=== PATIENT | female | born 1985 | race Caucasian/White ===

== ENCOUNTER 2018-08-20 01:28 | Observation (INO) ==
[2018-08-20] MEDS ORDERED: Ammonia Inhalant AMPUL IH ONE (01:36)
[2018-08-20] MEDS ORDERED: *HR* Dextrose 50 % in Water (Syg) 50 ML SYRINGE IVP ONE (01:38)
--- NOTE | 2018-08-20 01:41 | Emergency Department Note ---
Disposition Clinical Impression: Hypoglycemia Disposition: Still a Patient Condition: Fair Instructions: Diabetic Hypoglycemia (ED) Reasons to Return/Additional Instructions: Return to the emergency department if your symptoms persist or worsen. Return if you develop any new or concerning symptoms. Continue your home medications as prescribed. Please follow-up with your primary care physician. Please call their office first thing tomorrow morning to discuss this ED visit and schedule follow-up in the next 5-7 days or sooner if needed. Prescriptions: Glucagon,Human Recombinant [Glucagon Emergency Kit] 1 mg IJ ONCE PRN #1 vial PRN Reason: Hypoglycemia Referrals: Irasema Prince CNP [Primary Care Provider] - Forms: ED Satisfaction Letter Time of Disposition: 03:22 General Adult HPI - General Stated complaint: Low Blood sugar Time Seen by Provider: 08/20/18 01:34 Nursing Notes Reviewed: Yes Vital Signs Reviewed: Yes - History of Present Illness HPI Narrative: 33-year-old female known type I diabetic presents from home via EMS for evaluation of hyperglycemia. Per EMS, patient had hyperglycemic convulsions which awakened her . He tested her blood glucose which was in the 20s. He gave juice and called squad. On EMS arrival, blood glucose was in the low 40s. In route, she received 1 mg IM glucagon. Just prior to arrival, patient's blood glucose remained in the 40s. On arrival to this emergency department, patient's blood glucose 75. ROS: Limited secondary to patient's medical condition. - Related Data Home Medications Medication Instructions Recorded Confirmed Novolin R And Novolin N 07/20/15 Phenylephrine HCl/Acetaminophn 07/20/15 [Tylenol Sinus Congest-Pain Cpl] Previous Rx's Medication Instructions Recorded Azithromycin [Azithromycin 6-Tab 250 mg PO DAILY #6 tab 07/20/15 Pack] Dicyclomine [Bentyl] 20 mg PO QID PRN #20 capsule 03/07/16 Glucagon,Human Recombinant 1 mg IJ ONCE PRN #1 vial 08/20/18 [Glucagon Emergency Kit] Allergies Allergy/AdvReac Type Severity Reaction Status Date / Time No Known Allergies Allergy Verified 07/20/15 10:50 All systems ED: reviewed and negative except as stated. Review of Systems: As Per HPI Past Medical History - Past Medical History Medical history: Reports: diabetes Psychiatric history: Reports: no psych history DISEASE INTERVENTION SPECIALIST history: Reports: no DISEASE INTERVENTION SPECIALIST history - Social History Smoking Status: Never smoker Smokeless Tobacco Status: No Alcohol use: Reports: none Drug use: Reports: none Physical Exam Vital Signs Reviewed General: Patient response to sternal rub and painful stimuli. She does not spontaneously open her eyes however, when opening her eyelids to perform pupillary exam, she actively attempts to close her eyelids. Head: atraumatic, normocephalic Eye: normal appearance, PERRL, no scleral icterus, no conjunctival injection ENT: mucous membranes moist, normal external ear exam Neck: normal inspection, trachea midline, full ROM Chest: normal inspection, symmetric chest rise Respiratory: Good respiratory effort. Bilateral breath sounds are clear without wheezing, crackles, or rhonchi. Cardiovascular: Regular rate and rhythm. No clicks, rubs, gallops, or murmors. Normal heart sounds. Abdomen: Bowel sounds present normoactive. Abdomen is soft, nondistended, and nontender. No guarding or rebound. No organomegaly noted. Musculoskeletal: Spontaneously moving all extremities. Skin: warm, dry, intact. Neuro: No focal neurologic deficits observed. Psych: Patient's affect is appropriate for situation. Course Course Narrative: Blood glucose 75 on arrival. Patient is not spontaneously wake however, she responds to painful stimuli and actively tries to close her eyes during pupillary exam. IV established. One half amp D50 provided. Will monitor. Repeat blood glucoses in the 170s. After 1.5 hours the emergency department, patient was not spontaneously wake. Concern for potential confounding factors versus hypoglycemia. She would respond to noxious stimuli but would keep her eyes closed. Additional lab testing ordered. This involved procurement of a urine specimen. Straight catheter urine specimen was obtained for urinalysis as well as urine drug screen. Patient became responsive during this time and told staff to stop. Eyes were spontaneously opened. She would focus on certain individuals and track them in the room with her eyes. After sample was collected, she laid back down and closed her eyes. 04:15 Repeat blood glucose 160. Patient continued to desire to sleep. She had spontaneous purposeful movements but would not open her eyes. I had a one-way conversation with her informing her that her blood glucose and been corrected and her lab work was not concerning. I reminded her of her reaction during the urinary catheterization and told her that, when she woke up, she could go home. Her who is bedside during this one-sided conversation. Seconds later, patient appeared to wake up. She was able to hold a conversation. I asked the if he felt safe to go home and he said yes. As patient was discharged, stabbing was not able to get her out of bed to me: She would not sit upright of her own accord. does not believe she takes any sleeping supplements. Urine drug screen is unremarkable. UA not concerning for UTI. Will add CT head. CT head without contrast shows no acute process per radiology read. Will allow patient to continue sleeping in the emergency department. 18:55 Patient is now awake. Spontaneously opening her eyes and conversive. No slurring of speech. She appears to have some confusion as to who her is at bedside. She is unable to answer basic questions. Patient signed out to the day team, Dr. Leon and Dr. Ferguson. Pending: return of patient to baseline. Anticipated disposition: discharge home. Medical workup has not uncovered a cause of patient's behavior. Chest X-Ray 08/20/18 02:05 IMPRESSION: Normal chest x-ray D/ / Jan Corral MD / Jan Corral MD Interpreting Provider: Jan Corral MD Head CT 08/20/18 05:05 IMPRESSION: No acute intracranial abnormality. D/ / Jeff Tobin / Jeff Tobin Interpreting Provider: Jeff Tobin Vital Signs Temperature 97.4 F L 08/20/18 01:30 Pulse Rate 105 08/20/18 01:30 Respiratory Rate 20 08/20/18 01:30 Blood Pressure 124/72 08/20/18 01:30 O2 Sat by Pulse Oximetry 100 08/20/18 01:30 Temperature 97.4 F L 08/20/18 01:30 Pulse Rate 112 08/20/18 06:54 Respiratory Rate 16 08/20/18 06:54 Blood Pressure 113/69 08/20/18 06:54 O2 Sat by Pulse Oximetry 99 08/20/18 06:54 Oxygen Delivery Oxygen Delivery Room Air Medical Decision Making - Lab Data Result diagrams: 08/20/18 01:55 08/20/18 01:55 Lab Results 08/20/18 08/20/18 08/20/18 Range/Units 01:55 01:55 03:18 WBC 10.8 (4.3-11.1) K/mcL RBC 4.17 (3.82-4.97) M/mcL Hgb 12.2 (11.5-15.4) g/dL Hct 36.9 (35.3-44.9) % MCV 88.5 (83.0-100.0) fL MCH 29.3 (28.0-33.3) pg MCHC 33.1 (31.6-35.5) g/dL RDW 13.0 (11.5-14.5) % Plt Count 313 (140-400) K/mcL MPV 9.7 (9.4-12.4) fL Immature Gran % 0.5 (0-4) % Seg Neutrophils % 86.5 % Lymphocytes % 9.2 % Monocytes % 3.1 % Eosinophils % 0.2 % Basophils % 0.5 % Neutrophils # 9.3 H (1.6-8.9) K/mcL Lymphocytes # 1.0 (0.6-4.6) K/mcL Monocytes # 0.3 (0.0-1.3) K/mcL Eosinophils # 0.0 (0.0-0.6) K/mcL Basophils # 0.1 (0.0-0.2) K/mcL Sodium 135 L (136-145) mEq/L Potassium 4.0 (3.5-5.1) mEq/L Chloride 106 (98-107) mEq/L Carbon Dioxide 23 (23-29) mEq/L BUN 19 (6-20) mg/dL Creatinine 0.65 (0.60-1.20) mg/dL Est GFR ( Amer) > 60 (> 60) Est GFR (Non-Af Amer) > 60 (> 60) BUN/Creatinine Ratio 29 H (6-26) Glucose 140 H (70-105) mg/dL POC Glucose (70-99) mg/dL Calculated Osmolality 285 (280-300) Calcium 8.7 (8.6-10.3) mg/dL Magnesium 1.9 (1.6-2.6) mg/dL Urine Color Yellow (Yellow) Urine Clarity Cloudy A (Clear) Urine pH 5.0 (5.0-8.0) pH Units Ur Specific [place] 1.026 H (1.010-1.025) Urine Protein Negative (Neg-Trace) mg/dL Urine Glucose (UA) 500 H (Normal) mg/dL Urine Ketones Trace H (Negative) mg/dL Urine Blood Negative (Negative) Urine Nitrite Negative (Negative) Urine Bilirubin Negative (Negative) Urine Urobilinogen Normal (Normal) mg/dL Ur Leukocyte Esterase Negative (Negative) Urine Microscopic RBC 0-3 (0-3) per hpf Urine Microscopic WBC 0-3 (0-3) per hpf Ur Squamous Epith Cells Many H (None-Few) per lpf Urine Bacteria None Seen (None-Few) per hpf Hyaline Casts Few (None-Few) per lpf Ur Culture Indicated? NO (NO) Urine Opiates Screen (Iwwjlx=727) ng/mL Ur Barbiturates Screen (Olfyxe=540) ng/mL Ur Phencyclidine Scrn (Cutoff=25) ng/mL Ur Amphetamines Screen (Fqbmnn=7117) ng/mL U Benzodiazepines Scrn (Ipwnay=082) ng/mL Urine Cocaine Screen (Cutoff= 300) ng/mL U Marijuana (THC) Screen (Cutoff = 50) ng/mL Ur Drug Screen Interp 08/20/18 08/20/18 Range/Units 03:18 04:13 WBC (4.3-11.1) K/mcL RBC (3.82-4.97) M/mcL Hgb (11.5-15.4) g/dL Hct (35.3-44.9) % MCV (83.0-100.0) fL MCH (28.0-33.3) pg MCHC (31.6-35.5) g/dL RDW (11.5-14.5) % Plt Count (140-400) K/mcL MPV (9.4-12.4) fL Immature Gran % (0-4) % Seg Neutrophils % % Lymphocytes % % Monocytes % % Eosinophils % % Basophils % % Neutrophils # (1.6-8.9) K/mcL Lymphocytes # (0.6-4.6) K/mcL Monocytes # (0.0-1.3) K/mcL Eosinophils # (0.0-0.6) K/mcL Basophils # (0.0-0.2) K/mcL Sodium (136-145) mEq/L Potassium (3.5-5.1) mEq/L Chloride (98-107) mEq/L Carbon Dioxide (23-29) mEq/L BUN (6-20) mg/dL Creatinine (0.60-1.20) mg/dL Est GFR ( Amer) (> 60) Est GFR (Non-Af Amer) (> 60) BUN/Creatinine Ratio (6-26) Glucose (70-105) mg/dL POC Glucose 160 H (70-99) mg/dL Calculated Osmolality (280-300) Calcium (8.6-10.3) mg/dL Magnesium (1.6-2.6) mg/dL Urine Color (Yellow) Urine Clarity (Clear) Urine pH (5.0-8.0) pH Units Ur Specific [place] (1.010-1.025) Urine Protein (Neg-Trace) mg/dL Urine Glucose (UA) (Normal) mg/dL Urine Ketones (Negative) mg/dL Urine Blood (Negative) Urine Nitrite (Negative) Urine Bilirubin (Negative) Urine Urobilinogen (Normal) mg/dL Ur Leukocyte Esterase (Negative) Urine Microscopic RBC (0-3) per hpf Urine Microscopic WBC (0-3) per hpf Ur Squamous Epith Cells (None-Few) per lpf Urine Bacteria (None-Few) per hpf Hyaline Casts (None-Few) per lpf Ur Culture Indicated? (NO) Urine Opiates Screen Negative (Ufyktt=375) ng/mL Ur Barbiturates Screen Negative (Xqcjbv=493) ng/mL Ur Phencyclidine Scrn Negative (Cutoff=25) ng/mL Ur Amphetamines Screen Negative (Wdzsew=7529) ng/mL U Benzodiazepines Scrn Negative (Bjgnye=713) ng/mL Urine Cocaine Screen Negative (Cutoff= 300) ng/mL U Marijuana (THC) Screen Negative (Cutoff = 50) ng/mL Ur Drug Screen Interp See Below
[2018-08-20 02:12] LABS: Basophils # 0.1 K/mcL (0.0-0.2); Basophils % 0.5 %; Eosinophils % 0.2 %; Hematocrit 36.9 % (35.3-44.9); Hemoglobin 12.2 g/dL (11.5-15.4); Immature Granulocytes % 0.5 % (0-4); Lymphocytes % 9.2 %; Mean Corpuscular HGB Conc 33.1 g/dL (31.6-35.5); Mean Corpuscular Hemoglobin 29.3 pg (28.0-33.3); Mean Corpuscular Volume 88.5 fL (83.0-100.0); Mean Platelet Volume 9.7 fL (9.4-12.4); Monocytes # 0.3 K/mcL (0.0-1.3); Monocytes % 3.1 %; Neutrophils # 9.3 K/mcL (1.6-8.9); Platelet Count 313 K/mcL (140-400); Red Blood Count 4.17 M/mcL (3.82-4.97); Segmented Neutrophils % 86.5 %
[2018-08-20 02:23] LABS: BUN/Creatinine Ratio 29 (6-26); Blood Urea Nitrogen 19 mg/dL (6-20); Calcium 8.7 mg/dL (8.6-10.3); Carbon Dioxide 23 mEq/L (23-29); Chloride 106 mEq/L (98-107); Glucose 140 mg/dL (70-105); Magnesium 1.9 mg/dL (1.6-2.6); Osmolality,Calculated 285 (280-300); Sodium 135 mEq/L (136-145); eGFR For Non-African Americans > 60 (> 60)
[2018-08-20 03:37] LABS: Bilirubin,Urine Negative (Negative); Blood,Urine Negative (Negative); Clarity,Urine Cloudy (Clear); Color,Urine Yellow (Yellow); Glucose,Urine (UA) 500 mg/dL (Normal); Ketones,Urine Trace mg/dL (Negative); Leukocyte Esterase,Urine Negative (Negative); Nitrite,Urine Negative (Negative); Protein,Urine Negative (Neg-Trace); Specific Gravity,Urine 1.026 (1.010-1.025); Urobilinogen,Urine Normal (Normal)
[2018-08-20 03:38] LABS: Bacteria,Urine None Seen per hpf (None-Few); Hyaline Casts,Urine Few per lpf (None-Few); RBC,Urine 0-3 per hpf (0-3); Squamous Epithelial Cell,Urine Many per lpf (None-Few); WBC,Urine 0-3 per hpf (0-3)
[2018-08-20 03:46] LABS: Amphetamine Screen,Urine Negative ng/mL (Cutoff=1000); Barbiturate Screen,Urine Negative ng/mL (Cutoff=200); Benzodiazepines Screen,Urine Negative ng/mL (Cutoff=200); Cannabinoid Screen,Urine Negative ng/mL (Cutoff = 50); Cocaine Screen,Urine Negative ng/mL (Cutoff= 300); Opiate Screen,Urine Negative ng/mL (Cutoff=300); Phencyclidine Screen,Urine Negative ng/mL (Cutoff=25)
--- NOTE | 2018-08-20 03:56 | Emergency Department Note ---
Disposition Clinical Impression: Hypoglycemia Disposition: Still a Patient Condition: Fair Instructions: Diabetic Hypoglycemia (ED) Reasons to Return/Additional Instructions: Return to the emergency department if your symptoms persist or worsen. Return if you develop any new or concerning symptoms. Continue your home medications as prescribed. Please follow-up with your primary care physician. Please call their office first thing tomorrow morning to discuss this ED visit and schedule follow-up in the next 5-7 days or sooner if needed. Prescriptions: Glucagon,Human Recombinant [Glucagon Emergency Kit] 1 mg IJ ONCE PRN #1 vial PRN Reason: Hypoglycemia Referrals: Irasema Prince CNP [Primary Care Provider] - Forms: ED Satisfaction Letter General Adult HPI - General Chief complaint: ED General Medical Stated complaint: Low Blood sugar Time Seen by Provider: 08/20/18 01:34 Source: EMS Nursing Notes Reviewed: Yes Vital Signs Reviewed: Yes - History of Present Illness Pain Scale: 0 - Related Data Home Medications Medication Instructions Recorded Confirmed Novolin R And Novolin N 07/20/15 Phenylephrine HCl/Acetaminophn 07/20/15 [Tylenol Sinus Congest-Pain Cpl] Previous Rx's Medication Instructions Recorded Azithromycin [Azithromycin 6-Tab 250 mg PO DAILY #6 tab 07/20/15 Pack] Dicyclomine [Bentyl] 20 mg PO QID PRN #20 capsule 03/07/16 Glucagon,Human Recombinant 1 mg IJ ONCE PRN #1 vial 08/20/18 [Glucagon Emergency Kit] Allergies Allergy/AdvReac Type Severity Reaction Status Date / Time No Known Allergies Allergy Verified 07/20/15 10:50 Past Medical History - Past Medical History Medical history: Reports: diabetes Psychiatric history: Reports: no psych history MANAGER IN HOME history: Reports: no MANAGER IN HOME history - Social History Smoking Status: Never smoker Smokeless Tobacco Status: No Alcohol use: Reports: none Drug use: Reports: none Physical Exam - General General appearance: lethargic Course Vital Signs Temperature 97.4 F L 08/20/18 01:30 Pulse Rate 105 08/20/18 01:30 Respiratory Rate 20 08/20/18 01:30 Blood Pressure 124/72 08/20/18 01:30 O2 Sat by Pulse Oximetry 100 08/20/18 01:30 Temperature 97.4 F L 08/20/18 01:30 Pulse Rate 112 08/20/18 06:54 Respiratory Rate 16 08/20/18 06:54 Blood Pressure 113/69 08/20/18 06:54 O2 Sat by Pulse Oximetry 99 08/20/18 06:54 Oxygen Delivery Oxygen Delivery Room Air Medical Decision Making - Medical Records Medical records reviewed: Yes I reviewed the patient's medical records. - Lab Data Lab results reviewed: Yes I reviewed the patient's lab results. Result diagrams: 08/20/18 01:55 08/20/18 01:55 Lab Results 08/20/18 08/20/18 08/20/18 Range/Units 01:55 01:55 03:18 WBC 10.8 (4.3-11.1) K/mcL RBC 4.17 (3.82-4.97) M/mcL Hgb 12.2 (11.5-15.4) g/dL Hct 36.9 (35.3-44.9) % MCV 88.5 (83.0-100.0) fL MCH 29.3 (28.0-33.3) pg MCHC 33.1 (31.6-35.5) g/dL RDW 13.0 (11.5-14.5) % Plt Count 313 (140-400) K/mcL MPV 9.7 (9.4-12.4) fL Immature Gran % 0.5 (0-4) % Seg Neutrophils % 86.5 % Lymphocytes % 9.2 % Monocytes % 3.1 % Eosinophils % 0.2 % Basophils % 0.5 % Neutrophils # 9.3 H (1.6-8.9) K/mcL Lymphocytes # 1.0 (0.6-4.6) K/mcL Monocytes # 0.3 (0.0-1.3) K/mcL Eosinophils # 0.0 (0.0-0.6) K/mcL Basophils # 0.1 (0.0-0.2) K/mcL Sodium 135 L (136-145) mEq/L Potassium 4.0 (3.5-5.1) mEq/L Chloride 106 (98-107) mEq/L Carbon Dioxide 23 (23-29) mEq/L BUN 19 (6-20) mg/dL Creatinine 0.65 (0.60-1.20) mg/dL Est GFR ( Amer) > 60 (> 60) Est GFR (Non-Af Amer) > 60 (> 60) BUN/Creatinine Ratio 29 H (6-26) Glucose 140 H (70-105) mg/dL POC Glucose (70-99) mg/dL Calculated Osmolality 285 (280-300) Calcium 8.7 (8.6-10.3) mg/dL Magnesium 1.9 (1.6-2.6) mg/dL Urine Color Yellow (Yellow) Urine Clarity Cloudy A (Clear) Urine pH 5.0 (5.0-8.0) pH Units Ur Specific [place] 1.026 H (1.010-1.025) Urine Protein Negative (Neg-Trace) mg/dL Urine Glucose (UA) 500 H (Normal) mg/dL Urine Ketones Trace H (Negative) mg/dL Urine Blood Negative (Negative) Urine Nitrite Negative (Negative) Urine Bilirubin Negative (Negative) Urine Urobilinogen Normal (Normal) mg/dL Ur Leukocyte Esterase Negative (Negative) Urine Microscopic RBC 0-3 (0-3) per hpf Urine Microscopic WBC 0-3 (0-3) per hpf Ur Squamous Epith Cells Many H (None-Few) per lpf Urine Bacteria None Seen (None-Few) per hpf Hyaline Casts Few (None-Few) per lpf Ur Culture Indicated? NO (NO) Urine Opiates Screen (Ziqyxc=512) ng/mL Ur Barbiturates Screen (Ksevfq=734) ng/mL Ur Phencyclidine Scrn (Cutoff=25) ng/mL Ur Amphetamines Screen (Zsxwsh=0676) ng/mL U Benzodiazepines Scrn (Nlgkao=090) ng/mL Urine Cocaine Screen (Cutoff= 300) ng/mL U Marijuana (THC) Screen (Cutoff = 50) ng/mL Ur Drug Screen Interp 08/20/18 08/20/18 Range/Units 03:18 04:13 WBC (4.3-11.1) K/mcL RBC (3.82-4.97) M/mcL Hgb (11.5-15.4) g/dL Hct (35.3-44.9) % MCV (83.0-100.0) fL MCH (28.0-33.3) pg MCHC (31.6-35.5) g/dL RDW (11.5-14.5) % Plt Count (140-400) K/mcL MPV (9.4-12.4) fL Immature Gran % (0-4) % Seg Neutrophils % % Lymphocytes % % Monocytes % % Eosinophils % % Basophils % % Neutrophils # (1.6-8.9) K/mcL Lymphocytes # (0.6-4.6) K/mcL Monocytes # (0.0-1.3) K/mcL Eosinophils # (0.0-0.6) K/mcL Basophils # (0.0-0.2) K/mcL Sodium (136-145) mEq/L Potassium (3.5-5.1) mEq/L Chloride (98-107) mEq/L Carbon Dioxide (23-29) mEq/L BUN (6-20) mg/dL Creatinine (0.60-1.20) mg/dL Est GFR ( Amer) (> 60) Est GFR (Non-Af Amer) (> 60) BUN/Creatinine Ratio (6-26) Glucose (70-105) mg/dL POC Glucose 160 H (70-99) mg/dL Calculated Osmolality (280-300) Calcium (8.6-10.3) mg/dL Magnesium (1.6-2.6) mg/dL Urine Color (Yellow) Urine Clarity (Clear) Urine pH (5.0-8.0) pH Units Ur Specific [place] (1.010-1.025) Urine Protein (Neg-Trace) mg/dL Urine Glucose (UA) (Normal) mg/dL Urine Ketones (Negative) mg/dL Urine Blood (Negative) Urine Nitrite (Negative) Urine Bilirubin (Negative) Urine Urobilinogen (Normal) mg/dL Ur Leukocyte Esterase (Negative) Urine Microscopic RBC (0-3) per hpf Urine Microscopic WBC (0-3) per hpf Ur Squamous Epith Cells (None-Few) per lpf Urine Bacteria (None-Few) per hpf Hyaline Casts (None-Few) per lpf Ur Culture Indicated? (NO) Urine Opiates Screen Negative (Rbgjby=585) ng/mL Ur Barbiturates Screen Negative (Fnpcjh=794) ng/mL Ur Phencyclidine Scrn Negative (Cutoff=25) ng/mL Ur Amphetamines Screen Negative (Jncbhd=8360) ng/mL U Benzodiazepines Scrn Negative (Gtdiju=629) ng/mL Urine Cocaine Screen Negative (Cutoff= 300) ng/mL U Marijuana (THC) Screen Negative (Cutoff = 50) ng/mL Ur Drug Screen Interp See Below - Radiology Data Radiology results reviewed: Yes I reviewed the patient's radiology results. Chest X-Ray 08/20/18 02:05 IMPRESSION: Normal chest x-ray D/ / Jan Corral MD / Jan Corral MD Interpreting Provider: Jan Corral MD Chest X-Ray 08/20/18 02:05 IMPRESSION: Normal chest x-ray D/ / Jan Corral MD / Jan Corral MD Interpreting Provider: Jan Corral MD Head CT 08/20/18 05:05 IMPRESSION: No acute intracranial abnormality. D/ / Jeff Tobin / Jeff Tobin Interpreting Provider: Jeff Tobin Critical Care Time Critical Care Time: Yes Total Critical Care Time: 45 Attestation: Critical care performed: Time is exclusive of separately billable procedures. Time includes: direct patient care, patient reassessment, coordination of patient care, interpretation of data (laboratory data, radiology data, and respiratory data), review of patient's medical records, medical consultation and documentation of patient care. Procedures included in critical care time: Procedures excluded from critical care time: Attestation Statement - Attestation Attestation: I, Calvin Pemberton MD, personally evaluated this patient and discussed their management with the resident physician. I reviewed the resident's note and agree with the documented findings, medical decision making, and plan of care. 33-year-old female who is insulin-dependent diabetic presents to the emergency department by EMS for hypoglycemia. reports that she awoke him from sleep in the bed having seizure-like activity. He checked her sugar and it was 20. He tried giving her some juice. He called EMS. EMS scattered fingerstick of 40. They gave her glucagon 1 mg IM. On arrival here the patient's fingerstick blood sugar was 75 however she is still unresponsive. Like activity here. She does have appropriate response to pain or physical stimuli. No response to verbal stimuli. On examination patient is a well-developed well-nourished female in no acute distress. There is no cyanosis or diaphoresis. Patient responds to physical stimuli. No signs of trauma. Mucous membranes are moist. Neck is supple. Breath sounds are clear and equal bilaterally. Heart regular rate and rhythm. Abdomen soft with normal bowel sounds. Moves all 4 extremities spontaneously. Labs reviewed. Chest x-ray negative. Head CT negative. Patient received one half amp of D50. Repeat fingerstick blood sugar was 173. She remained unresponsive. After period of observation a straight catheter was performed to obtain urine for urinalysis and urine tox screen. Patient woke up fully during the straight catheter but then immediately went back to sleep and rolled on her side. We will continue to observe patient until she is more awake alert and then she may be discharged home. At 0 6:30 patient is much more arousable. She is more alert and speaking clearly however she is still very confused and does not recognize people. She does not recognize her and still making some inappropriate responses to questions. Her condition has however progressively improved over the last several hours and I feel she needs a few more hours of observation. She is being signed out to the oncoming dayshift team, Dr. Ferguson and Dr. Leon. If patient does not get back to her baseline mental status over the next few hours she may need to be admitted for altered mental status.
--- NOTE | 2018-08-20 07:25 | Emergency Department Note ---
Disposition Clinical Impression: Hypoglycemia Altered mental status Qualifiers: Altered mental status type: unspecified Qualified Code(s): R41.82 - Altered mental status, unspecified Disposition: Admitted As Inpatient Condition: Fair General Adult HPI - General Chief complaint: ED General Medical Stated complaint: Low Blood sugar Time Seen by Provider: 08/20/18 01:34 Source: EMS - History of Present Illness Pain Scale: 0 - Related Data Home Medications Medication Instructions Recorded Confirmed Novolin R And Novolin N 07/20/15 Phenylephrine HCl/Acetaminophn 07/20/15 [Tylenol Sinus Congest-Pain Cpl] Previous Rx's Medication Instructions Recorded Azithromycin [Azithromycin 6-Tab 250 mg PO DAILY #6 tab 07/20/15 Pack] Dicyclomine [Bentyl] 20 mg PO QID PRN #20 capsule 03/07/16 Glucagon,Human Recombinant 1 mg IJ ONCE PRN #1 vial 08/20/18 [Glucagon Emergency Kit] Allergies Allergy/AdvReac Type Severity Reaction Status Date / Time No Known Allergies Allergy Verified 07/20/15 10:50 Past Medical History - Past Medical History Medical history: Reports: diabetes Psychiatric history: Reports: no psych history MEDICAL PHYSIOLOGIST history: Reports: no MEDICAL PHYSIOLOGIST history - Social History Smoking Status: Never smoker Smokeless Tobacco Status: No Alcohol use: Reports: none Drug use: Reports: none Physical Exam - General General appearance: lethargic Course Course Narrative: [place] of care at 07:18 from assistant offset press operator team. Please see prior documentation for full details. In brief, IDDM who woke up with convulsions this morning. Checked glucose which was 20. Drank juice, was 40 when EMS arrived. Received glucagon IM 1mg. Glucose was 75 upon arrival receiving 1/2 amp D50. Patient had remained somnolent initially here prompting CT imaging head which was negative. Awaiting patient return to baseline. Vital Signs Temperature 97.4 F L 08/20/18 01:30 Pulse Rate 105 08/20/18 01:30 Respiratory Rate 20 08/20/18 01:30 Blood Pressure 124/72 08/20/18 01:30 O2 Sat by Pulse Oximetry 100 08/20/18 01:30 Temperature 97.4 F L 08/20/18 01:30 Pulse Rate 108 08/20/18 09:02 Respiratory Rate 18 08/20/18 08:07 Blood Pressure 119/65 08/20/18 09:02 O2 Sat by Pulse Oximetry 99 08/20/18 09:02 Oxygen Delivery Oxygen Delivery Room Air Medical Decision Making - MDM Narrative Medical decision making narrative: 33-year-old female presenting due to hypoglycemia and altered mental status. She has been corrected easily with supplemental dextrose as well as glucagon. No recurrent issues of seizure-like activity or hypoglycemia. She has remained symptomatic and currently not at baseline. She is having visual complaints as well as confusion. She was observed here for over 7 hours without return to baseline. Patient admitted to the hospitalist service for altered mental status, hypoglycemia. - Lab Data Lab results reviewed: Yes I reviewed the patient's lab results. Result diagrams: 08/20/18 01:55 08/20/18 01:55 Lab Results 08/20/18 08/20/18 08/20/18 Range/Units 01:55 01:55 03:18 WBC 10.8 (4.3-11.1) K/mcL RBC 4.17 (3.82-4.97) M/mcL Hgb 12.2 (11.5-15.4) g/dL Hct 36.9 (35.3-44.9) % MCV 88.5 (83.0-100.0) fL MCH 29.3 (28.0-33.3) pg MCHC 33.1 (31.6-35.5) g/dL RDW 13.0 (11.5-14.5) % Plt Count 313 (140-400) K/mcL MPV 9.7 (9.4-12.4) fL Immature Gran % 0.5 (0-4) % Seg Neutrophils % 86.5 % Lymphocytes % 9.2 % Monocytes % 3.1 % Eosinophils % 0.2 % Basophils % 0.5 % Neutrophils # 9.3 H (1.6-8.9) K/mcL Lymphocytes # 1.0 (0.6-4.6) K/mcL Monocytes # 0.3 (0.0-1.3) K/mcL Eosinophils # 0.0 (0.0-0.6) K/mcL Basophils # 0.1 (0.0-0.2) K/mcL Sodium 135 L (136-145) mEq/L Potassium 4.0 (3.5-5.1) mEq/L Chloride 106 (98-107) mEq/L Carbon Dioxide 23 (23-29) mEq/L BUN 19 (6-20) mg/dL Creatinine 0.65 (0.60-1.20) mg/dL Est GFR ( Amer) > 60 (> 60) Est GFR (Non-Af Amer) > 60 (> 60) BUN/Creatinine Ratio 29 H (6-26) Glucose 140 H (70-105) mg/dL POC Glucose (70-99) mg/dL Calculated Osmolality 285 (280-300) Calcium 8.7 (8.6-10.3) mg/dL Magnesium 1.9 (1.6-2.6) mg/dL Urine Color Yellow (Yellow) Urine Clarity Cloudy A (Clear) Urine pH 5.0 (5.0-8.0) pH Units Ur Specific [place] 1.026 H (1.010-1.025) Urine Protein Negative (Neg-Trace) mg/dL Urine Glucose (UA) 500 H (Normal) mg/dL Urine Ketones Trace H (Negative) mg/dL Urine Blood Negative (Negative) Urine Nitrite Negative (Negative) Urine Bilirubin Negative (Negative) Urine Urobilinogen Normal (Normal) mg/dL Ur Leukocyte Esterase Negative (Negative) Urine Microscopic RBC 0-3 (0-3) per hpf Urine Microscopic WBC 0-3 (0-3) per hpf Ur Squamous Epith Cells Many H (None-Few) per lpf Urine Bacteria None Seen (None-Few) per hpf Hyaline Casts Few (None-Few) per lpf Ur Culture Indicated? NO (NO) Urine Opiates Screen (Ldohne=008) ng/mL Ur Barbiturates Screen (Coyaoj=126) ng/mL Ur Phencyclidine Scrn (Cutoff=25) ng/mL Ur Amphetamines Screen (Yykkqj=0307) ng/mL U Benzodiazepines Scrn (Npapbo=602) ng/mL Urine Cocaine Screen (Cutoff= 300) ng/mL U Marijuana (THC) Screen (Cutoff = 50) ng/mL Ur Drug Screen Interp 08/20/18 08/20/18 Range/Units 03:18 04:13 WBC (4.3-11.1) K/mcL RBC (3.82-4.97) M/mcL Hgb (11.5-15.4) g/dL Hct (35.3-44.9) % MCV (83.0-100.0) fL MCH (28.0-33.3) pg MCHC (31.6-35.5) g/dL RDW (11.5-14.5) % Plt Count (140-400) K/mcL MPV (9.4-12.4) fL Immature Gran % (0-4) % Seg Neutrophils % % Lymphocytes % % Monocytes % % Eosinophils % % Basophils % % Neutrophils # (1.6-8.9) K/mcL Lymphocytes # (0.6-4.6) K/mcL Monocytes # (0.0-1.3) K/mcL Eosinophils # (0.0-0.6) K/mcL Basophils # (0.0-0.2) K/mcL Sodium (136-145) mEq/L Potassium (3.5-5.1) mEq/L Chloride (98-107) mEq/L Carbon Dioxide (23-29) mEq/L BUN (6-20) mg/dL Creatinine (0.60-1.20) mg/dL Est GFR ( Amer) (> 60) Est GFR (Non-Af Amer) (> 60) BUN/Creatinine Ratio (6-26) Glucose (70-105) mg/dL POC Glucose 160 H (70-99) mg/dL Calculated Osmolality (280-300) Calcium (8.6-10.3) mg/dL Magnesium (1.6-2.6) mg/dL Urine Color (Yellow) Urine Clarity (Clear) Urine pH (5.0-8.0) pH Units Ur Specific [place] (1.010-1.025) Urine Protein (Neg-Trace) mg/dL Urine Glucose (UA) (Normal) mg/dL Urine Ketones (Negative) mg/dL Urine Blood (Negative) Urine Nitrite (Negative) Urine Bilirubin (Negative) Urine Urobilinogen (Normal) mg/dL Ur Leukocyte Esterase (Negative) Urine Microscopic RBC (0-3) per hpf Urine Microscopic WBC (0-3) per hpf Ur Squamous Epith Cells (None-Few) per lpf Urine Bacteria (None-Few) per hpf Hyaline Casts (None-Few) per lpf Ur Culture Indicated? (NO) Urine Opiates Screen Negative (Iflbph=834) ng/mL Ur Barbiturates Screen Negative (Cueuvk=849) ng/mL Ur Phencyclidine Scrn Negative (Cutoff=25) ng/mL Ur Amphetamines Screen Negative (Qsbvyv=9258) ng/mL U Benzodiazepines Scrn Negative (Pyjvit=460) ng/mL Urine Cocaine Screen Negative (Cutoff= 300) ng/mL U Marijuana (THC) Screen Negative (Cutoff = 50) ng/mL Ur Drug Screen Interp See Below - Radiology Data Radiology results reviewed: Yes I reviewed the patient's radiology results. Chest X-Ray 08/20/18 02:05 IMPRESSION: Normal chest x-ray D/ / Jan Corral MD / Jan Corral MD Interpreting Provider: Jan Corral MD Head CT 08/20/18 05:05 IMPRESSION: No acute intracranial abnormality. D/ / Jeff Tobin / Jeff Tobin Interpreting Provider: Jeff Tobin S.B.APatty - S.B.ALaniRLani Situation: Demographics, MOA Background: Presenting Complaint, Relevant PMH, Meds, & Allergies Assessment: Course and respsone to treatment, Exam Concerns, Patient/Family Expectation, Pertinant Lab Results Recommendation: Barrier(s) to disposition, Recommendation based on pending studies, treatments, or consults S.B.A.RLani Report Given to: Dr. Zaira Esquivel Repor Time: 09:09 Attestation Statement - Attestation Attestation: Resident Attestation: I examined this patient and my medical decision making was reviewed with the Resident Physician. I agree with the documented findings, disposition and treatment plan as described except to the extent set forth below. We independently had [id number] contact with the patient. Patient taken over at sign out from Dr. Pemberton. Patient with initial hypoglycemia. Patient was treated appropriately and continue to monitor. Patient did not improve as expected. Patient's workup was brought in. At the time of evaluating her she continues to be confused. She does appear to have some short-term memory loss. Initial workup was negative. Due to her not returning to baseline and a total time of over 6 hours in the emergency department we will continue her observation in the hospital. We have discussed this with the hospitalist the patient has been accepted for admission. Overall the patient has been unable to further explain any of her symptoms. She states she feels not right but is unable to further delineate this in any way. Denies fever, chills, nausea, vomiting, chest pain, shortness of breath, abdominal pain, dysuria, vaginal discharge, rashes, or swelling in the legs.
[2018-08-20] MEDS ORDERED: 0.9 % Sodium Chloride 1,000 ML IVC ONE (08:30)
[2018-08-20] MEDS ORDERED: Ondansetron 4 MG/2 ML VIAL IVP ONE (09:10)
[2018-08-20] MEDS ORDERED: Naloxone 0.4 MG/ML INJ IVP PRN (09:18)
[2018-08-20] MEDS ORDERED: *HR* Dextrose 50 % in Water (Syg) 50 ML SYRINGE IVP PRN (09:19)
[2018-08-20] MEDS ORDERED: Dextrose Gel 15 GM/37.5 ML TUBE PO PRN ×2 (09:19)
[2018-08-20] MEDS ORDERED: D5% in Water 1,000 ML IVC PRN (09:19)
[2018-08-20] MEDS ORDERED: Dextrose 4 GM Chewable Tablets PO PRN ×2 (09:19)
--- NOTE | 2018-08-20 09:26 | Internal Med History&Physical ---
Date of Encounter: 08/20/18 Time of Encounter: 09:00 Internal Medicine - H&P: HPI Chief complaint: seizure, AMS Admitted From: Home History of present illness: Ms. Ladd is a 33 year old female with history of type 1 diabetes presented to the ED with an episode of seizure. History is limited due to patient's ongoing encephalopathy hence further information was obtained on chart review, discussion with the ED physician, and patient's at bedside. Patient's was woken up by his last night when he noted she had seizure like activities. Tonic-clonic movements in both UE and LEs. Lasted about a minute, followed by post-ictal confusion for about 25 mins. He checked her glucose which was noted nydia 20. He somehow administered small amount of orange juice which raised her blood glucose to 40 then was brought to the ED for further evaluation prior to the episode, she did not have any focal complaints include chest pain, shortness of breath, palpitation, cough, sputum production, nausea/vomiting, abdominal pain, change in bowel habits, dysuria, or recent illnesses or sick contacts. is not sure whether she had administer extra doses of insulin recently. She and is currently alert but not able to give any meaningful history as she keeps repeating "something is not right". In the ED, she was afebrile and hemodynamically stable. No further seizure-like activities were noted during her stay. Workup was largely unremarkable with blood glucose at 140 -> 385. Urinalysis was negative for leukocyte esterase or nitrite. Chest x-ray did not show any acute cardiopulmonary process and CT was negative for i ntracranial bleed. After monitoring the patient in the ED for 8 hours, patient still was not at her baseline mental status and the decision was made to admit the patient for further management. Past Med Surg Social Fam HX - Past Medical History Medical history: diabetes Psychiatric history: no psych history - Past Surgical History Surgical History: no surgical history - Social History Smoking Status: Never smoker Smokeless Tobacco Status: No Alcohol use: none Drug use: none - Additional Family History Additional family history: unable to obtain due to mental status Internal Medicine - H&P: Meds Azithromycin [Azithromycin 6-Tab Pack] 250 mg PO DAILY #6 tab 07/20/15 [Rx] Novolin R And Novolin N 07/20/15 [History] Phenylephrine HCl/Acetaminophn [Tylenol Sinus Congest-Pain Cpl] 07/20/15 [History] Dicyclomine [Bentyl] 20 mg PO QID PRN #20 capsule 03/07/16 [Rx] Glucagon,Human Recombinant [Glucagon Emergency Kit] 1 mg IJ ONCE PRN #1 vial 08/20/18 [Rx] Allergy/AdvReac Type Severity Reaction Status Date / Time No Known Allergies Allergy Verified 07/20/15 10:50 All Systems PM: A 10-system review of systems was performed and is negative for pertinent findings except as documented above in the HPI. - Constitutional Vitals: Temp Pulse Resp BP Pulse Ox 97.4 F L 108 18 119/65 99 08/20/18 01:30 08/20/18 09:02 08/20/18 08:07 08/20/18 09:02 08/20/18 09:02 Exam: General: Alert and oriented to self, unable to tell me what year/month it is or where we are. Able to recognize her however. Appears to be anxious but comfortable HEENT: pupils equal, round and reactive. Cardiovascular:Normal S1 & S2, No JVD. Pulse regular. Lungs: clear to auscultation, no wheezes/rales Abdomen:Soft, non-tender, no rigidity. Extremities:No deformity or swelling Neurological: does not follow commands reliably for full neuro exam but no facial droop, slurring of speech, or nystagmus. Moving all 4 limbs spontaneously without any difficulty and walking ambulating in hallway. Skin:Normal color, no rash, no lesions. Pulses:Carotid and radial pulses normal +2. Rest of the physical exam is non contributory Internal Med - H&P Results - Labs CBC & Chem 7: 08/20/18 01:55 08/20/18 01:55 Labs: Short CBC 08/20/18 Range/Units 01:55 WBC 10.8 (4.3-11.1) K/mcL Hgb 12.2 (11.5-15.4) g/dL Hct 36.9 (35.3-44.9) % Plt Count 313 (140-400) K/mcL Neutrophils # 9.3 H (1.6-8.9) K/mcL BMP 08/20/18 01:55 Sodium 135 L Potassium 4.0 Chloride 106 Carbon Dioxide 23 BUN 19 Creatinine 0.65 Glucose 140 H Calcium 8.7 Urine 08/20/18 Range/Units 03:18 Urine Color Yellow (Yellow) Urine Clarity Cloudy A (Clear) Urine pH 5.0 (5.0-8.0) pH Units Ur Specific [place] 1.026 H (1.010-1.025) Urine Protein Negative (Neg-Trace) mg/dL Urine Glucose (UA) 500 H (Normal) mg/dL - Impressions ITS Impressions Chest X-Ray 08/20/18 02:05 IMPRESSION: Normal chest x-ray D/ / Jan Corral MD / Jan Corral MD Interpreting Provider: Jan Corral MD Head CT 08/20/18 05:05 IMPRESSION: No acute intracranial abnormality. D/ / Jeff Tobin / Jeff Tobin Interpreting Provider: Jeff Tobin - Assessment and Plan (1) Hypoglycemic encephalopathy Current Visit: Yes Status: Acute Assessment and plan: Presented with seizure-like activities in the setting of blood glucose of 20 Unsure how much insulin she had use at home. Blood glucose normalized in the ED but her mentation has not come back to her baseline yet In the setting of hypoglycemic encephalopathy, improvement in the neurological symptoms can lag behind the normalization of blood glucose will admit for observation overnight monitor blood glucose Q4 fall precaution If no significant improvement is noted by tomorrow, may consider Neurology evaluation and MRI brain (2) Seizure Current Visit: Yes Status: Acute Assessment and plan: Likely due to the above, no further episodes noted nor any evidence of status epilepticus seizure precaution, elevated HOB will monitor off AEDs CT head -ve EEG (3) DVT prophylaxis Current Visit: Yes Status: Acute Assessment and plan: EPCD - Time Spent With Patient Total time spent is greater than 50% in coordination of care (as documented) at patient's floor/unit and/or counseling patient: 25 - 35 minutes
[2018-08-20 10:53] LABS: Acetaminophen < 10 mcg/mL (10-20); Salicylate < 2.5 mg/dL (15.0-30.0)
[2018-08-20 10:54] LABS: Ethanol < 10 mg/dL (Less than 10)
[2018-08-20] MEDS: Ringers Solution, Lactated 1,000 ML IVC SCH (11:28)
[2018-08-20] MEDS: Insulin LISPRO 300 UNITS/3 ML VIAL SQ SCH ×3 (12:24→21:11)
--- NOTE | 2018-08-20 15:26 | EEG/EMG/Oth Biometrics Report ---
EEG Procedure Report EEG Procedure: Routine EEG Procedure Note: This is a report of a 21 channel bipolar and referential montage EEG. There is no posterior dominant rhythm identified during the study. Study begins with the patient and stage II sleep as reference by lack of posterior dominant rhythm and the presence of vertex sharp waves, K complexes and sleep spindles. This pattern persists throughout the recording. Photostimulation is performed and does not produce a driving response. The EKG rhythm strip reveals sinus tachycardia at 108 bpm. Impressions: This EEG recording is route sales representative of normal stage II sleep. There is no evidence of epileptiform activity identified during the study. Sinus tachycardia at 108 bpm's identified. Comment: A normal EEG does not preclude a diagnosis of seizure or epilepsy. If the clinical suspicion for seizure activity is high, serial EEGs or perhaps a prolonged recording may increase the yield. Please correlate clinically.
[2018-08-20] MEDS: Ondansetron 4 MG/2 ML VIAL IVP PRN (18:20)
[2018-08-21] MEDS: Ringers Solution, Lactated 1,000 ML IVC SCH (00:38)
[2018-08-21] MEDS: Insulin LISPRO 300 UNITS/3 ML VIAL SQ SCH ×3 (00:39→08:04)
[2018-08-21 03:48] VITALS: BP 100/64
[2018-08-21 05:59] LABS: Hematocrit 34.3 % (35.3-44.9); Hemoglobin 11.2 g/dL (11.5-15.4); Mean Corpuscular HGB Conc 32.7 g/dL (31.6-35.5); Mean Corpuscular Volume 88.9 fL (83.0-100.0); Mean Platelet Volume 10.5 fL (9.4-12.4); Platelet Count 318 K/mcL (140-400); Red Blood Count 3.86 M/mcL (3.82-4.97); Red Cell Distribution Width 13.2 % (11.5-14.5)
[2018-08-21 06:15] LABS: BUN/Creatinine Ratio 24 (6-26); Blood Urea Nitrogen 21 mg/dL (6-20); Calcium 8.9 mg/dL (8.6-10.3); Carbon Dioxide 17 mEq/L (23-29); Chloride 103 mEq/L (98-107); Glucose 392 mg/dL (70-105); Magnesium 1.8 mg/dL (1.6-2.6); Osmolality,Calculated 295 (280-300); Potassium 4.2 mEq/L (3.5-5.1); Sodium 133 mEq/L (136-145); eGFR For Non-African Americans > 60 (> 60)
[2018-08-21] MEDS: Ondansetron 4 MG/2 ML VIAL IVP PRN (08:06)
--- NOTE | 2018-08-21 11:19 | Discharge Summary ---
- NOTES TO OUTPATIENT PROVIDER Notes to Outpatient Provider: Follow up with PCP in one week. Follow up with Endocrinology in 1-2 weeks. Orders not resulted at time of discharge: Pending orders 08/20/18 09:20 Sulfonylurea Hypoglycemia Urin Stat 08/20/18 10:12 C-Peptide Stat Hypoglycemic Panel Stat 08/21/18 05:31 Hgb A1C Routine Date of Encounter: 08/21/18 Time of Encounter: 11:12 - Discharge Diagnosis (1) Hypoglycemic encephalopathy Priority: Primary Status: Acute (2) Seizure Priority: Primary Status: Acute (3) DVT prophylaxis Priority: Secondary Status: Acute Hospital course: Ms. Ladd is a 33 year old female with history of type 1 diabetes presented to the ED with an episode of seizure. Patient's was woken up by his last night when he noted she had seizure like activities. Tonic-clonic movements in both UE and LEs. Lasted about a minute, followed by post-ictal confusion for about 25 mins. He checked her glucose which was noted nydia 20. Pt did mention she does use Insulin pump with carb count , y/d when she programmed for pump for some insulin dosing with the anticiation eating certain amount of carbohydrates, but she did not eat and fell a sleep which might triggered the hypoglycemia induced seizure. She was admitted in the hospital for observation and to moniotr her blood sugars. Her blood sugars are immproved now and no more seizure activity noticed. Her EEG came back as normal too. Off note pt did mention her Blood sugars usually well controlled with her HbA1C 7.2. Recommend to continue same regimen / carb count with insulin pump. I gave an Rx for Glucagon Inj PRN for emergency. - Time Spent with Patient Total time spent providing and/or coordinating discharge services: - Discharge Medications Prescriptions: New Glucagon, Human Recombinant [Glucagen] 1 mg IM ONCE PRN #2 vial PRN Reason: Hypoglycemia Continue Insulin LISPRO [HumaLOG] 0 unit SQ AD Acetaminophen [Tylenol] 1,000 mg PO DAILY PRN PRN Reason: Headache Home Medications: Acetaminophen [Tylenol] 1,000 mg PO DAILY PRN 08/21/18 [History] Glucagon, Human Recombinant [Glucagen] 1 mg IM ONCE PRN #2 vial 08/21/18 [Rx] Insulin LISPRO [HumaLOG] 0 unit SQ AD 08/21/18 [History] Allergies/Adverse Reactions: Allergy/AdvReac Type Severity Reaction Status Date / Time No Known Allergies Allergy Verified 08/21/18 10:37 Date of admission: 08/20/18 09:23 Primary care physician: Irasema Prince CNP Consults: 08/20/18 14:58 Consult to Interpret Exam [CONS] Routine Consulting Provider: Alvaro Moise Consult to Interpret Exam: Interpret EEG - Constitutional Vitals: Temp Pulse Resp BP Pulse Ox 99.3 F 60 16 100/64 96 08/21/18 07:12 08/21/18 07:12 08/21/18 07:12 08/21/18 03:47 08/21/18 07:12 General appearance: Present: cooperative, A&O X 3, no acute distress, answers questions appropriately Exam: Gen: Alert, awake, Oriented to time,place and person Chest: Diminished breath sounds B/L, No wheezing, No crackles, No rales Heart: S1S2+ RRR No murmurs Abd: Soft, NT, BS +, No organomegaly Ext: No edema, pulses are palpable, No calf tenderness Neuro : Benign findings Skin: No rash. - Patient Status Disposition: Home, Self-Care Condition: Good Overall status at discharge: patient is back to baseline - Discharge Instructions Follow Up With: Irasema Prince CNP [Primary Care Provider] - - Diet and Activity Activity: increase activity as tolerated Diet: diabetic diet, low salt diet
[2018-08-21 11:22] LABS: Estimated Average Glucose 143 mg/dl; Hemoglobin A1C 6.6 %
--- NOTE | 2018-08-22 19:34 | Electrocardiograph Report ---
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
[2018-08-23 22:35] LABS: Chlorpropamide NOT DETECTED ng/mL (Cutoff 100); Glimepiride NOT DETECTED ng/mL (Cutoff 5); Glipizide NOT DETECTED ng/mL (Cutoff 5); Glyburide NOT DETECTED ng/mL (Cutoff 5); Nateglinide NOT DETECTED ng/mL (Cutoff 5); Repaglinide NOT DETECTED ng/mL (Cutoff 5); Tolazamide NOT DETECTED ng/mL (Cutoff 100)
[2018-08-24 11:39] LABS: Tolbutamide NOT DETECTED ng/mL (Cutoff 100)
== END 2018-08-21 11:48 | disposition home or self-care (01) ==
LOC: EMEROOARM 01:28 → 3BNU 01:28 → SUATTDRO 09:23 → 3BNU 10:39
PROVIDERS: ADMIT Internal Medicine; ATTEND Family Medicine